=== PATIENT | male | born 1955 | race Caucasian/White ===

== ENCOUNTER 2022-02-21 18:53 | Inpatient (IN) | payer OTHER ==
[~2022-02-21] VITALS: Ht 177.8 cm; Wt 75.3 kg
[~2022-02-21 18:53] MED LIST: AMLODIPINE BES2.5 MG PO; BISOPROLOL FUMA10 MG PO; CALCIUM 600+D1 EAC3 PO; LIPITOR40 MG PO; MIRALAX17 GM PO; MULTIVITAMINS1 EAC1 PO; NEURONTIN300 MG PO; PROAIR HFA8.5 GM INH; PROSCAR 5 MG TAB5 MG PO; SINGULAIR10 MG PO; SPIRIVA RESPIMAT4 GM INH; ZANAFLEX 4 MG TA4 MG GT; ZANAFLEX4 MG PO; ZESTRIL 40 MG T40 MG PO
[2022-02-21 20:05] LABS: HEMOGLOBIN 13.1 gm/dl (14.0-17.5); RED BLOOD COUNT 4.49 M/UL (4.20-5.50); WHITE BLOOD COUNT 7.4 K/UL (4.5-11.0)
[2022-02-22 05:36] LABS: HEMOGLOBIN 14.6 gm/dl (14.0-17.5); RED BLOOD COUNT 4.76 M/UL (4.20-5.50); WHITE BLOOD COUNT 7.8 K/UL (4.5-11.0)
[2022-02-22] MEDS ORDERED: MULTIVITAMIN1 EACH PO (10:23)
[2022-02-22] MEDS ORDERED: HYDROCODON-ACE1 EAC6 PO (10:23)
[2022-02-23 08:08] LABS: RED BLOOD COUNT 4.59 M/UL (4.20-5.50); WHITE BLOOD COUNT 6.8 K/UL (4.5-11.0)
[2022-02-23 08:24] LABS: BUN/CREATININE RATIO 17 (0-10)
[2022-02-24 02:29] LABS: HEMOGLOBIN 13.3 gm/dl (14.0-17.5); RED BLOOD COUNT 4.44 M/UL (4.20-5.50); WHITE BLOOD COUNT 6.7 K/UL (4.5-11.0)
[2022-02-24 03:12] LABS: BUN/CREATININE RATIO 15 (0-10)
[2022-02-25 03:08] LABS: HEMOGLOBIN 13.8 gm/dl (14.0-17.5); RED BLOOD COUNT 4.49 M/UL (4.20-5.50); WHITE BLOOD COUNT 7.2 K/UL (4.5-11.0)
[2022-02-25 03:39] LABS: BUN/CREATININE RATIO 20 (0-10)
[2022-02-25 09:48] LABS: BORDETELLA PARAPERTUSSIS Not Detected (Not Detectd); BORDETELLA PERTUSSIS Not Detected (Not Detectd); CHLAMYDIA PNEUMONIAE Not Detected (Not Detectd); CORONAVIRUS HKU1 Not Detected (Not Detectd); CORONAVIRUS NL63 Not Detected (Not Detectd); CORONAVIRUS OC43 Not Detected (Not Detectd); CORONOAVIRUS 229E Not Detected (Not Detectd); HUMAN METAPNEUMOVIRUS Not Detected (Not Detectd); HUMAN RHINOVIRUS/ENTEROVIRUS Not Detected (Not Detectd); INFLUENZA A Not Detected (Not Detectd); INFLUENZA B Not Detected (Not Detectd); MYCOPLASMA PNEUMONIAE Not Detected (Not Detectd); PARAINFLUENZA VIRUS 1 Not Detected (Not Detectd); PARAINFLUENZA VIRUS 2 Not Detected (Not Detectd); PARAINFLUENZA VIRUS 3 Not Detected (Not Detectd); PARAINFLUENZA VIRUS 4 Not Detected (Not Detectd); RESPIRATORY SYNCYTIAL VIRUS Not Detected (Not Detectd)
[2022-02-25 11:00] LABS: SARS-CoV-2 NOT DETECTED (Not Detectd)
--- NOTE | 2022-02-25 16:04 | NUR ---
REPORT CALLED TO JEREMÍAS HAWK ON MED SURG 4 WITH ALL QUESTION ASKED AND ANSWERED
[2022-02-26 06:20] LABS: HEMOGLOBIN 13.9 gm/dl (14.0-17.5); RED BLOOD COUNT 4.56 M/UL (4.20-5.50); WHITE BLOOD COUNT 5.5 K/UL (4.5-11.0)
[2022-02-26 06:49] LABS: BUN/CREATININE RATIO 19 (0-10)
[2022-02-26] MEDS ORDERED: FLOMAX 0.4 MG0.4 MG PO (10:48)
--- NOTE | 2022-02-26 11:33 | NUR ---
PT OXYGEN REMOVED ROOM AIR SATS RESTING 92% ROOM AIR AFTER AMBULATION 91%
== END 2022-02-26 14:07 | disposition home or self-care (01) | DRG 682 ==
LOC: ER1 18:53 → MED SURG 4 20:59 → CCU 20:59 → PROG CARE 20:59 → CDU 20:59 → CCU 22:53 → PROG CARE 02-23 17:27 → MED SURG 4 02-25 17:19
PROVIDERS: Internal Medicine; Physician Assistant; ADMIT Internal Medicine
PROC: 3E033XZ Introduction of Vasopressor into Peripheral Vein, Percutaneous Approach (ICD-10-PCS; principal; 2022-02-22)
PROC: 5A09357 Assistance with Respiratory Ventilation, Less than 24 Consecutive Hours, Continuous Positive Airway Pressure (ICD-10-PCS; 2022-02-22)
PROC: B24BZZZ Ultrasonography of Heart with Aorta (ICD-10-PCS; 2022-02-23)
DX: N17.9 Acute kidney failure, unspecified (principal); J18.9 Pneumonia, unspecified organism; J96.01 Acute respiratory failure with hypoxia; J96.02 Acute respiratory failure with hypercapnia; J98.11 Atelectasis; R57.9 Shock, unspecified; E87.4 Mixed disorder of acid-base balance; I12.9 Hypertensive chronic kidney disease with stage 1 through stage 4 chronic kidney disease, or unspecified chronic kidney disease; J44.9 Chronic obstructive pulmonary disease, unspecified; E87.5 Hyperkalemia; N13.30 Unspecified hydronephrosis; G62.9 Polyneuropathy, unspecified; Z96.619 Presence of unspecified artificial shoulder joint; N40.0 Benign prostatic hyperplasia without lower urinary tract symptoms; Z90.49 Acquired absence of other specified parts of digestive tract; Z98.890 Other specified postprocedural states; Z88.0 Allergy status to penicillin; Z79.899 Other long term (current) drug therapy
CPT/HCPCS: ECHO; 36415; 36600; 71045; 71046; 80048; 80053; 81001; 82436; 82550; 82553; 82803; 83605; 83735; 83880; 84133; 84300; 84484; 85025; 85027; 86140; 87040; 87633; 93005; 93306; 94640; 94660; 94664; 94760; 96360; 96361; 96374; 96375; 97110-GP-CQ; 97116-GP-CQ; 97161; 97165; 97530; 99285; J0692; J1644; J2020; J2185; J2930